=== PATIENT | male | born 1970 | race Native Hawaiian/Other Pacific Islander ===

== ENCOUNTER 2022-12-26 11:29 | Emergency (ER) | payer OTHER ==
[~2022-12-26] VITALS: Ht 188 cm; Wt 104.3 kg
[2022-12-26 11:31] VITALS: BP 126/80; TEMP 98
== END 2022-12-26 13:13 | disposition home or self-care (01) ==
LOC: ED 11:29
PROC: 0HQFXZZ Repair Right Hand Skin, External Approach (ICD-10-PCS; principal; 2022-12-26)
DX: S61.021A Laceration with foreign body of right thumb without damage to nail, initial encounter (principal); V84.5XXA Driver of special agricultural vehicle injured in nontraffic accident, initial encounter; Y92.79 Other farm location as the place of occurrence of the external cause
CPT/HCPCS: 90715; 99283